=== PATIENT | male | born 1935 | race Two or more races ===

== ENCOUNTER 2017-01-25 15:13 | Emergency (ER) | payer SELFPAY ==
[2017-01-25 15:24] VITALS: RESP 18; TEMP 97.3; O2SAT 97
--- NOTE | 2017-01-25 15:35 | EDPHY ---
H & P Stated Complaint: tripped on step/fell to knees/bilat knee pain Time Seen by Provider: 01/25/17 15:27 HPI/ROS: CHIEF COMPLAINT: Left knee pain HISTORY OF PRESENT ILLNESS: The patient is an 81-year-old man who comes to the emergency department this family after he tripped and fell on the brakes this morning. He landed on both knees and a kneeling position. He has minor abrasions to both knees but is primarily complaining of pain in his left knee. He states that that is his bad knee and it occasionally gives out on him. This did not happen today. He has pain with ambulation but can ambulate. REVIEW OF SYSTEMS: Constitutional: denies: chills, fever, recent illness, recent injury EENTM: denies: blurred vision, double vision, nose congestion Respiratory: denies: cough, shortness of breath Cardiac: denies: chest pain, irregular heart rate, lightheadedness, palpitations Gastrointestinal/Abdominal: denies: abdominal pain, diarrhea, nausea, vomiting, blood streaked stools Genitourinary: denies: dysuria, frequency, hematuria, pain Musculoskeletal: See HPI Skin: denies: lesions, rash, jaundice, bruising Neurological: denies: headache, numbness, paresthesia, tingling, dizziness, weakness Hematologic/Lymphatic: denies: blood clots, easy bleeding, easy bruising Immunologic/allergic: denies: HIV/AIDS, transplant EXAM: GENERAL: Well-appearing, well-nourished and in no acute distress. HEAD: Atraumatic, normocephalic. EYES: Pupils equal round and reactive to light, extraocular movements intact, sclera anicteric, conjunctiva are normal. ENT: TMs normal, nares patent, oropharynx clear without exudates. Moist mucous membranes. NECK: Normal range of motion, supple without lymphadenopathy or JVD. LUNGS: Breath sounds clear to auscultation bilaterally and equal. No wheezes rales or rhonchi. HEART: Regular rate and rhythm without murmurs, rubs or gallops. ABDOMEN: Soft, nontender, normoactive bowel sounds. No guarding, no rebound. No masses appreciated. BACK: No CVA tenderness, no spinal tenderness, step-offs or deformities EXTREMITIES: Bilateral abrasions to both knees, pain with ambulation to left knee. No swelling. No deformity. NEUROLOGICAL: Cranial nerves II through XII grossly intact. Normal speech, normal gait. 5/5 strength, normal movement in all extremities, normal sensation PSYCH: Normal mood, normal affect. SKIN: Warm, dry, normal turgor, no visible rashes or lesions. Source: Patient Exam Limitations: Language barrier (Professional wig maker used) - Personal History Current Tetanus/Diphtheria Vaccine: Yes - Medical/Surgical History Hx Asthma: No Hx Chronic Respiratory Disease: No Hx Diabetes: Yes Hx Cardiac Disease: Yes Hx Renal Disease: No Hx Cirrhosis: No Hx Alcoholism: No Hx HIV/AIDS: No Hx Splenectomy or Spleen Trauma: No Other PMH: htn/diab neck cancer - Family History Significant Family History: No pertinent family hx - Social History Smoking Status: Never smoked Alcohol Use: Sober Drug Use: None Constitutional: Initial Vital Signs Temperature (C) 36.3 C 01/25/17 15:20 Heart Rate 67 01/25/17 15:20 Respiratory Rate 18 01/25/17 15:20 Blood Pressure 152/77 H 01/25/17 15:20 O2 Sat (%) 97 01/25/17 15:20 O2 Delivery Mode Room Air Allergies/Adverse Reactions: No Known Allergies Allergy (Unverified 01/25/17 15:17) Home Medications: Medication Instructions Recorded GLIPIZIDE 01/25/17 Lasix 01/25/17 Losartan Potassium 01/25/17 Metformin HCl 01/25/17 Omeprazole 01/25/17 Verapamil 01/25/17 Medical Decision Making - Diagnostics Imaging Results: Imaging Impressions Knee X-Ray 01/25/17 15:34 Impression: Patellar fracture. Imaging: I viewed and interpreted images myself Procedures: Procedure: Splint placement. A straight leg knee brace splint was applied. After application of the splint I returned and re-examined the patient. The splint was adequately immobilizing the joint and distal to the splint the patient's circulation and sensation was intact. ED Course/Re-evaluation: We discussed the x-ray results. The patient was fitness straight leg brace and will follow up with Orthopedics. Patient and family understand agree with this plan. Differential Diagnosis: Partial list of the Differential diagnosis considered include but were not limited to; patella fracture, knee effusion, abrasion and although unlikely based on the history and physical exam, I also considered knee dislocation, tibial plateau fracture, hip fracture. I discussed these differential diagnoses and the plan with the patient as well as the usual and expected course. The patient understands that the diagnosis is provisional and that in medicine we are not always correct and that further workup is often warranted. Usual and customary warnings were given. All of the patient's questions were answered. The patient was instructed to return to the emergency department should the symptoms at all worsen or return, otherwise to followup with the physician as we discussed. Departure - Departure Disposition: Home, Routine, Self-Care Clinical Impression: Patellar sleeve fracture of left knee Qualifiers: Encounter type: initial encounter Fracture type: closed Qualified Code(s): S82.092A - Other fracture of left patella, initial encounter for closed fracture Condition: Fair Instructions: Patellar Fracture (ED) Referrals: NONE *PRIMARY CARE P,. [Primary Care Provider] - As per Instructions Merrill Watts MD [Medical Doctor] - As per Instructions
[2017-01-25 16:48] VITALS: BP 148/74; PULSE 68
== END 2017-01-25 16:48 | disposition home or self-care (01) ==
PROC: 2W3MX1Z Immobilization of Left Lower Extremity using Splint (ICD-10-PCS; principal; 2017-01-25)
DX: S82.002A Unspecified fracture of left patella, initial encounter for closed fracture (principal); I10 Essential (primary) hypertension; E11.9 Type 2 diabetes mellitus without complications; Z79.84 Long term (current) use of oral hypoglycemic drugs; Z79.899 Other long term (current) drug therapy; W01.0XXA Fall on same level from slipping, tripping and stumbling without subsequent striking against object, initial encounter
CPT/HCPCS: L3980